=== PATIENT | male | born 1985 | race Caucasian/White ===

== ENCOUNTER 2020-02-04 00:24 | Emergency (ER) | payer OTHER ==
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
[2020-02-04 00:59] VITALS: BP 106/68; PULSE 66; TEMP 98.5; BMI 23.0
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
[2020-02-04] MEDS ORDERED: BACITRACIN 15 GM TUBE TOPICAL OINTMENT ONE (01:05)
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
== END 2020-02-04 02:24 | disposition home or self-care (01) ==
LOC: JER 00:24
DX: M79.604 Pain in right leg (principal)
CPT/HCPCS: 99283-25

== ENCOUNTER 2020-02-05 03:23 | Emergency (ER) | payer SELFPAY ==
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
[2020-02-05 03:33] VITALS: BP 116/74; PULSE 67; TEMP 98.3; BMI 23.0
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
== END 2020-02-05 03:47 | disposition left against medical advice (07) ==
LOC: FER 03:23
DX: S81.801A Unspecified open wound, right lower leg, initial encounter (principal)
CPT/HCPCS: 99283-25

== ENCOUNTER 2020-02-05 03:59 | Emergency (ER) | payer OTHER ==
--- NOTE | 2020-02-05 04:16 | PDOC ---
Medical Decision Making - Medical Decision Making 02/05/20 04:16 Patient seen by the advanced practice provider under my supervision. Ancillary testing reviewed as necessary. I agree with plan as outlined by the advanced practice provider. Discharge - Discharge Information Problems reviewed: Yes Clinical Impression/Diagnosis: Leg wound, right Qualifiers: Encounter type: initial encounter Qualified Code(s): S81.801A - Unspecified open wound, right lower leg, initial encounter Condition: Fair Disposition: HOME - Follow up/Referral - Patient Discharge Instructions Additional Instructions: Take Tylenol or ibuprofen for pain. Please check your wound with your primary care doctor - Post Discharge Activity Work/Back to School Note: Back to Work
--- OUTSIDE RECORDS SUMMARY | 2020-02-05 04:17 | XMS ---
[...] is protected by Article 27-F of the [facility] Public Health law. If you continue you may haveaccess to information: Regarding HIV / AIDS; Provided by facilities licensed or operated by the [facility] Office of Mental Health; or Provided by the [facility] Office for People With Developmental Disabilities. If such information is present, then the following [facility] mandated warning applies: This information has been [...] law may result in a fine or alf sentence or both. A general authorization for the release of medical or other information is NOT sufficient authorization for further disclosure. Allergies and Adverse Reactions Type Description Substance Reaction Status Data Source(s ) D No Known Allergies No Known Allergies [facility] Encounters Encounter Providers Location Date Indications Data Source(s ) Emergency Attender: [facility] ED H 02/03/2020 [facility] STAFF 11:15:00 PM Medical [facility] r PHYSICIANAttender: EDT - STAFF ED STAFF 02/03/2020 PHYSICIANAdmitter: 11:56:00 PM [facility] ED STAFF EDT PHYSICIANReferrer: ZUNASSIGNED Patient discharged. Emergency Attender: NENA EDMOND 02/02/2020 12:59:00 PM [facility] Dain: STAFF ED STAFF EDT - 02/02/2020 [facility] PHYSICIANAdmitter: NENA 07:07:00 PM EDT FELI Fish: ZUNASSIGNED Patient discharged. Emergency Attender: [facility] ED STAFF 01/31/2020 04:19:00 PM [facility] PHYSICIANAttender: STAFF ED EDT - 01/31/2020 [facility] STAFF PHYSICIANAdmitter: LEIGH 06:35:00 PM EDT ED STAFF PHYSICIANReferrer: ZUNASSIGNED Patient discharged. Emergency Attender: ALFREDO XR-ED 12/21/2019 COVID TEST ME byterian - AHARI MDAttender: 03:44:19 PM EDT - [facility] ALFREDO AHARI 12/21/2019 [facility] MDAttender: ALFREDO 04:47:00 PM EDT AHARI MDAttender: ALFREDO AHARI MDAttender: ALFREDO AHARI MDAttender: ALFREDO AHARI MDAttender: ALFREDO AHARI MDReferrer: NONE NONE COVID TEST Patient discharged. Emergency Attender: ALFREDO Macdonald [place] 12/21/2019 [facility] 03:44:19 PM EDT - [facility]T Immunizations Vaccine Date Status Description Data Source(s) Tdap 02/02/2020 06:47:00 PM EDT completed S [facility] Medications Medication Brand Start Product Dose Route Administrative Pharmacy rinku Indications Reaction Description Data Name Date Form Instructions Instructions Source(s) No Known drug or 2019 ed [facility] tn medica 04:19: an - tion 20 PM [facility] Cephalexin cephal 1 complet Yancy t 500 MG Oral exin ed [facility] Capsule 500 mg Medical cephalexin Capsul Center 500 mg e, Capsule, Ordere Ordered By: d By: wolf Lopez MDDirection Benjam s: 1 in, capsule MDDire oral every ctions six hours : 1 capsul e oral every six hours Ibuprofen ibupro 1 complet Saint 600 MG Oral fen ed [facility] Tablet 600 mg Medical ibuprofen Tablet Center 600 mg , Tablet, Ordere Ordered By: d By: wolf Lopez MDDirection Benjam s: 1 tablet in, oral every MDDire six hours ctions PRN pain : 1 tablet oral every six hours PRN pain Bacitracin bacitr 1 complet Yancy t 0.5 UNT/MG acin ed [facility] Topical 500 Medical Ointment unit/g Center bacitracin abdiaziz 500 Ointme unit/gram nt, Ointment, Ordere Ordered By: d By: wolf Lopez MDDirection Benjam s: 1 in, application MDDire topical ctions daily : 1 applic ation topica l daily Insurance Providers Payer name Policy type Policy ID Covered Covered republican's Policy P [place] / Coverage republican ID relationship to Garcia Inf ormation type gacria MEDICARE [id number] SP [id number] J63 SELF PAY SP INSURANCE MEDICARE MCR [id number] J63 O PGBA, [id number] SP [id number] LLC/ O Problems, Conditions, and Diagnoses Code Display Name Description Problem Type Effective Dates Data Source(s) Z53.21 Procedure and PROC/TRTMT NOT Diagnosis 01/31/2020 [facility] treatment not CRD OUT D/T PT LV 04:19:00 PM EDT Medical Center carried out due to BEF SEEN BY [facility] patient leaving CARE PROV prior to being seen by health care provider Z04.89 ENCOUNTER FOR ENCOUNTER FOR Diagnosis 01/31/2020 [facility] EXAMINATION AND EXAMINATION AND 04:19:00 PM EDT [facility] OBSERVATION FOR OBSERVATION FOR OTH REASONS OTH REASONS Results ID Date Data Source [id number] 01/20/2020 12:50:00 AM EDT [facility] Name Value Range Interpretation Code Description Data Karishma rce(s) Supporting Document(s ) SARS-CoV-2 [facility] N gene Resp Ql BRITTNEE+probe This lab was ordered by [facility] and reported by [facility]. ID Date Data Source [id number] 12/21/2019 04:27:00 PM EDT [facility] Name Value Range Interpretation Description Data Source(s ) Supporting Code Document(s ) SARS [facility] Coronavirus 2 - [facility] Respiratory Specimen BRITTNEE Probe Detection This lab was ordered by [facility] and reported by [facility]. Procedure Social History Code Duration Value [...] Smoking 01/31/2020 Occasional completed Occasional [facility] 04:37:00 PM Smoker Smoker Medical Cente r EDT Smoking 01/31/2020 Occasional completed Occasional [facility] 04:26:00 PM Smoker Smoker Medical Cente r EDT Alcohol UNK completed [facility] Cente r Substance Abuse UNK completed [facility] Cente r Tobacco smoking completed [facility] unknown [facility] (finding) Vital Signs ID Date Data Source UNK Name Value Range Interpretation Code Description Data Source(s) Body temperature 36.717907 36.291276 [facility] Respiratory rate 17 /min 17 /min [facility] Oxygen saturation 97 % 97 % [facility] in Arterial blood [facility] Center by Pulse oximetry Heart rate 80 /min 80 /min [facility] Diastolic blood 56 mm[Hg] 56 mm[Hg] [facility] Systolic blood 106 mm[Hg] 106 mm[Hg] [facility] Body temperature 36.552265 36.992131 [facility] Respiratory rate 18 /min 18 /min [facility] Oxygen saturation 99 % 99 % [facility] in Arterial blood [facility] by Pulse oximetry Heart rate 86 /min 86 /min [facility] Diastolic blood 87 mm[Hg] 87 mm[Hg] [facility] Systolic blood 132 mm[Hg] 132 mm[Hg] [facility] Body temperature 36.255117 36.000432 [facility] Respiratory rate 17 /min 17 /min [facility] Oxygen saturation 99 % 99 % [facility] in Arterial blood [facility] by Pulse oximetry Heart rate 80 /min 80 /min [facility] Diastolic blood 77 mm[Hg] 77 mm[Hg] [facility] Systolic blood 132 mm[Hg] 132 mm[Hg] [facility] Body weight 77.797314 77.204322 kg [facility] Measured kg Medical [place] Body temperature 36.544087 36.523595 [facility] Respiratory rate 18 /min 18 /min [facility] Oxygen saturation 97 % 97 % [facility] in Arterial blood [facility] by Pulse oximetry Heart rate 67 /min 67 /min [facility] Body height 182.451687 182.958044 cm [facility] Diastolic blood 69 mm[Hg] 69 mm[Hg] [facility] Systolic blood 135 mm[Hg] 135 mm[Hg] [facility] Body mass index 23.0 kg/m2 23.0 kg/m2 [facility] (BMI) [Ratio] Medical [facility] Body weight 77.544234 77.918269 kg [facility] hs Measured kg Medical Center Body temperature 37.600063 37.637090 El[facility] Respiratory rate 19 /min 19 /min [facility] Oxygen saturation 97 % 97 % [facility] osephs in Arterial blood Medical Center by Pulse oximetry Heart rate 98 /min 98 /min [facility] Body height 182.109178 182.312572 cm [facility] Diastolic blood 93 mm[Hg] 93 mm[Hg] [facility] pressure [facility] Systolic blood 154 mm[Hg] 154 mm[Hg] [facility] Body mass index 23.0 kg/m2 23.0 kg/m2 [facility] (BMI) [Ratio] Medical [facility] Body weight 72.000 kg 72.000 kg [facility] an - Measured [facility] Body height 169.000 cm 169.000 cm [facility] Body temperature 98.5 [degF] 98.5 [degF] [facility] - - Temporal artery [facility] Peripheral Pulse 79 bpm Normal (applies to 79 bpm [facility] - Rate non-numeric results) [facility] Respiratory rate 18 br/min Normal (applies to 18 br/min [facility] - non-numeric results) [facility] Body height 169 cm 169 cm [facility] Body weight 72 kg 72 kg [facility] an - Measured [facility] Body surface area 1.84 1.84 [facility] Patient Treatment Plan of Care Planned Activity Planned Date Details Description Data Source (s) No Known Medications 12/21/2019 04:19:20 [facility] - EDT [facility] ospital Center Bacitracin 0.5 UNT/MG [facility] Topical Ointment [place] Ibuprofen 600 MG Oral [facility] Tablet [place] Cephalexin 500 MG Oral [facility] Capsule [place]
[2020-02-05 04:22] VITALS: BP 113/73; PULSE 65; TEMP 98.2; BMI 23.0
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
[2020-02-05] MEDS ORDERED: KETOROLAC TROMETHAMINE 30 MG/1 ML VIAL IM ONE (04:35)
== END 2020-02-05 05:41 | disposition home or self-care (01) ==
LOC: JER 03:59
DX: S81.801A Unspecified open wound, right lower leg, initial encounter (principal)
CPT/HCPCS: 99282-25

== ENCOUNTER 2020-02-09 05:13 | Emergency (ER) | payer OTHER ==
[2020-02-09] MEDS ORDERED: traMADol HCL 50 MG TABLET PO ONE (05:27)
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
[2020-02-09 05:35] VITALS: BP 108/69; PULSE 65; TEMP 97.8; BMI 19.9
[2020-02-09] MEDS ORDERED: traMADol HCL 50 MG TABLET ONE (05:36)
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
== END 2020-02-09 06:01 | disposition home or self-care (01) ==
LOC: JER 05:13
DX: G89.29 Other chronic pain (principal)
CPT/HCPCS: 99283-25